=== PATIENT | female | born 1985 | race Caucasian/White ===

== ENCOUNTER → 2017-09-24 | Outpatient (CLI) | payer OTHER ==
[~2017-09-24] MED LIST: None per pt
[2017-09-24 16:20] LABS: BASOPHILS # (AUTO) 0.04 x10^3/uL (0-0.1); BASOPHILS % (AUTO) 1 % (0-1); EOSINOPHILS # (AUTO) 0.06 x10^3/uL (0-0.4); EOSINOPHILS % (AUTO) 1 % (1-7); LYMPHOCYTES # (AUTO) 1.95 x10^3/uL (1-3.4); LYMPHOCYTES % (AUTO) 31 % (22-44); MD NO; MEAN CORPUSCULAR HEMOGLOBIN 29.4 pg (27.0-34.8); MEAN CORPUSCULAR HGB CONC 33.2 g/dL (32.4-35.8); MEAN CORPUSCULAR VOLUME 88.4 fL (80-100); MEAN PLATELET VOLUME 9.1 fL (7.4-10.4); MONOCYTES # (AUTO) 0.36 x10^3/uL (0.2-0.8); MONOCYTES % (AUTO) 6 % (2-9); NEUTROPHILS # (AUTO) 3.95 x10^3/uL (1.8-6.8); NEUTROPHILS % (AUTO) 62 % (42-75); PLATELET COUNT 246 x10^3/uL (130-400); RED BLOOD COUNT 4.31 x10^6/uL (3.82-5.3); RED CELL DISTRIBUTION WIDTH 13.4 % (9.6-15.2)
[2017-09-24 16:21] LABS: CULTURE INDICATED? NO; MICROSCOPIC AUTO
== END | disposition home or self-care (01) ==
LOC: STAR 15:20
PROVIDERS: ATTEND Obstetrics & Gynecology Maternal & Fetal Medicine
DX: Z01.818 Encounter for other preprocedural examination (principal); N94.6 Dysmenorrhea, unspecified; N92.0 Excessive and frequent menstruation with regular cycle
CPT/HCPCS: 36415; 81001; 84703; 85025

== ENCOUNTER 2017-10-08 05:35 | Observation (INO) | payer OTHER ==
[~2017-10-08] VITALS: Ht 167.6 cm; Wt 62.0 kg
[2017-10-08] MEDS ORDERED: LACTATED RINGERS 1,000 ML IV SCH (06:33)
[2017-10-08] MEDS ORDERED: NEOSPORIN OINT. PKT 1 PACKET ONE (06:36)
[2017-10-08] MEDS ORDERED: BUPIVACAINE 0.25% ONE (06:36)
[2017-10-08] MEDS ORDERED: FLUORESCEIN SODIUM 500 MG/5 ML ONE (06:36)
[2017-10-08 06:42] LABS: HCG UR SG 1.015 (1.003-1.030)
[2017-10-08 06:49] VITALS: BP 124/79
[2017-10-08] MEDS ORDERED: SCOPOLAMINE PATCH, 1.5MG PATCH.TD72 TD ONE (07:00)
[2017-10-08] MEDS ORDERED: OxyconTIN ER 10 MG TAB.ER PO ONE (07:00)
[2017-10-08] MEDS ORDERED: ACETAMINOPHEN 500 MG TABLET PO ONE (07:00)
[2017-10-08] MEDS ORDERED: GABAPENTIN 300 MG CAPSULE PO ONE (07:00)
[2017-10-08] MEDS ORDERED: ONDANSETRON ODT 8 MG PO ONE (07:00)
[2017-10-08] MEDS ORDERED: EPINEPHRINE 1 MG/ML, 1ML ONE (07:18)
[2017-10-08] MEDS ORDERED: LABETALOL 5MG/ML, 20ML IV PRN (08:00)
[2017-10-08] MEDS ORDERED: hydrALAzine 20 MG/ML, 1ML IV PRN (08:00)
[2017-10-08] MEDS ORDERED: HALOPERIDOL 5 MG/ML IV PRN (08:00)
[2017-10-08] MEDS ORDERED: FENTANYL PF 100 MCG/2ML IV PRN (08:00)
[2017-10-08] MEDS ORDERED: PROMETHAZINE 25 MG/ML, 1ML IV PRN (08:00)
[2017-10-08] MEDS ORDERED: HYDROmorphone 1 MG/ML, 1ML IV PRN (08:00)
[2017-10-08] MEDS ORDERED: MEPERIDINE/PF 25MG/0.5ML IVPush PRN (08:00)
[2017-10-08] MEDS ORDERED: OXYcodone 5 MG/5 ML ORAL.SOL UDC PO PRN (08:00)
[2017-10-08] MEDS ORDERED: FENTANYL PF 250 MCG/5ML ONE (08:04)
[2017-10-08] MEDS ORDERED: MIDAZOLAM 1 MG/ML, 2ML ONE (08:04)
[2017-10-08] MEDS ORDERED: PROPOFOL 50 ML ONE (08:07)
[2017-10-08] MEDS ORDERED: ROCURONIUM 10MG/ML,5ML ONE (08:07)
[2017-10-08] MEDS ORDERED: PROPOFOL 10 MG/ML, 20ML ONE (08:07)
[2017-10-08] MEDS ORDERED: CEFOTETAN PMX 2GM/50ML 50 ML ONE (08:07)
[2017-10-08] MEDS ORDERED: ONDANSETRON 2MG/ML, 2ML IVPush PRN (09:30)
[2017-10-08] MEDS ORDERED: MEPERIDINE/PF 50 MG/ML ONE (10:08)
[2017-10-08 11:10] VITALS: BP 110/67
[2017-10-08] MEDS ORDERED: OXYC-302 PO (11:22)
[2017-10-08] MEDS ORDERED: IBUP-1222 PO (11:22)
[2017-10-08] MEDS: KETOROLAC 30 MG/1 ML IVPush PRN ×2 (11:41→21:11)
[2017-10-08] MEDS: morphine SULFATE 10 MG/ML, 1ML IVPush PRN ×2 (13:46→17:55)
[2017-10-08 13:50] VITALS: BP 115/68
[2017-10-08] MEDS: LACTATED RINGERS 1,000 ML IV SCH (15:50)
[2017-10-08] MEDS: SIMETHICONE 80 MG CHEW TAB PO SCH ×2 (15:50→21:10)
[2017-10-08 20:07] VITALS: BP 102/59
[2017-10-08] MEDS: DOCUSATE 100 MG CAPSULE PO SCH (21:11)
[2017-10-08] MEDS: OXYcodone/APAP 5/325MG TABLET PO PRN ×2 (21:11→22:29)
[2017-10-08 23:00] VITALS: BP 101/60
[2017-10-09 03:26] VITALS: BP 104/67
[2017-10-09] MEDS: OXYcodone/APAP 5/325MG TABLET PO PRN ×2 (03:52→07:35)
[2017-10-09 07:27] VITALS: BP 99/62
[2017-10-09] MEDS: LACTATED RINGERS 1,000 ML IV SCH ×2 (08:00)
[2017-10-09] MEDS: DOCUSATE 100 MG CAPSULE PO SCH (08:45)
[2017-10-09] MEDS: SIMETHICONE 80 MG CHEW TAB PO SCH (08:45)
[2017-10-09 10:30] VITALS: BP 104/68
== END 2017-10-09 10:52 | disposition home or self-care (01) ==
LOC: OUT 05:35 → ORIP 09:39 → UNDOADMOB 10:11 → 4NOR 11:00 → DCLOUNGE 10-09 10:39
PROVIDERS: ADMIT Obstetrics & Gynecology Maternal & Fetal Medicine; ATTEND Obstetrics & Gynecology Maternal & Fetal Medicine
DX: N92.0 Excessive and frequent menstruation with regular cycle (principal); N83.8 Other noninflammatory disorders of ovary, fallopian tube and broad ligament
CPT/HCPCS: 36415; 58552; 81025; 85014; 85018; 88307; 96374; 96375; 96376; G0378; J0171; J1885; J2175; J2250; J2270; J2704; J3010; J3490; J7120; Q0162; S0074

== ENCOUNTER → 2020-03-09 | Outpatient (CLI) | payer OTHER ==
[~2020-03-09] MED LIST changes: +IBUP-1222 PO; +OXYC-302 PO; +SPIR100T4 PO
[2020-03-09 16:05] LABS: ALANINE AMINOTRANSFERASE 16 U/L (12-78); ALBUMIN 4.2 g/dL (3.4-5.0); ANION GAP 6 mmol/L (5-15); CALCIUM 9.1 mg/dL (8.5-10.1); CHLORIDE 109 mmol/L (98-107); CREATININE 0.75 mg/dL (0.55-1.02)
[2020-03-09 16:07] LABS: ALKALINE PHOSPHATASE 58 U/L (45-117); BILIRUBIN,TOTAL 0.3 mg/dL (0.2-1.0); TOTAL PROTEIN 7.5 g/dL (6.4-8.2)
== END | disposition home or self-care (01) ==
LOC: STAR 15:04
PROVIDERS: ATTEND Orthopaedic Surgery
DX: Z01.812 Encounter for preprocedural laboratory examination (principal); Z20.828 Contact with and (suspected) exposure to other viral communicable diseases; G56.01 Carpal tunnel syndrome, right upper limb; G56.21 Lesion of ulnar nerve, right upper limb
CPT/HCPCS: 36415; 80053; 87635

== ENCOUNTER 2020-03-15 09:27 | Day surgery (SDC) | payer OTHER ==
[~2020-03-15] VITALS: Ht 165.1 cm; Wt 60.5 kg
[2020-03-15 09:46] VITALS: BP 138/96
[2020-03-15] MEDS ORDERED: FENTANYL PF 100 MCG/2ML ONE ×4 (09:58→11:32)
[2020-03-15] MEDS ORDERED: MIDAZOLAM 1 MG/ML, 2ML ONE (09:59)
[2020-03-15] MEDS ORDERED: LACTATED RINGERS 1,000 ML IV SCH (10:00)
[2020-03-15] MEDS ORDERED: CHLORHEXIDINE 15 ML UDC MM ONE (10:00)
[2020-03-15] MEDS ORDERED: LIDOCAINE 1%, 10ML INFIL ONE (10:09)
[2020-03-15] MEDS ORDERED: BUPIVACAINE/PF 0.5% INFIL ONE (10:10)
[2020-03-15] MEDS ORDERED: PROMETHAZINE 25 MG/ML, 1ML IVPush PRN (10:30)
[2020-03-15] MEDS ORDERED: ACETAMINOPHEN 325 MG TABLET PO PRN (10:30)
[2020-03-15] MEDS ORDERED: DEXAMETHASONE 4 MG/ML, 1ML ONE (10:31)
[2020-03-15] MEDS ORDERED: PROPOFOL 10 MG/ML, 20ML ONE (10:31)
[2020-03-15] MEDS ORDERED: KETOROLAC 30 MG/1 ML ONE (10:31)
[2020-03-15] MEDS ORDERED: ONDANSETRON 2MG/ML, 2ML ONE (10:31)
[2020-03-15] MEDS ORDERED: LIDOCAINE-MPF 2% ,5ML ONE (10:31)
[2020-03-15] MEDS ORDERED: PROPOFOL 10 MG/ML, 50ML ONE (11:07)
[2020-03-15] MEDS: FENTANYL PF 100 MCG/2ML IV PRN ×4 (11:16→11:48)
[2020-03-15] MEDS ORDERED: OXYcodone 5 MG/5 ML ORAL.SOL UDC ONE (11:26)
[2020-03-15] MEDS ORDERED: ACETAMINOPHEN 650 MG/20.3 ML UDC ONE (11:26)
[2020-03-15] MEDS: OXYcodone 5 MG/5 ML ORAL.SOL UDC PO PRN ×2 (11:29→12:20)
== END 2020-03-15 12:45 | disposition home or self-care (01) ==
LOC: OUT 09:27
PROVIDERS: ATTEND Orthopaedic Surgery
DX: G56.03 Carpal tunnel syndrome, bilateral upper limbs (principal); G56.23 Lesion of ulnar nerve, bilateral upper limbs; M75.51 Bursitis of right shoulder; Z79.891 Long term (current) use of opiate analgesic; Z79.899 Other long term (current) drug therapy; Z88.8 Allergy status to other drugs, medicaments and biological substances
CPT/HCPCS: 64719; 64721; J1100; J1885; J2250; J2405; J2704; J3010